=== PATIENT | male | born 1945 | race Caucasian/White ===

== ENCOUNTER 2022-08-28 12:00 | Emergency (ER) | payer MEDICARE ==
[2022-08-28] MEDS ORDERED: Aspirin Chewable 81 MG TAB ONE (12:24)
[2022-08-28 12:29] LABS: #Basophils 0.1 thou/uL (0.0-0.2); #Eosinphils 0.4 thou/uL (0.0-0.7); #Monocytes 1.1 thou/uL (0.11-0.59); #Neutrophils 9.2 thou/uL (1.40-6.50); %Basophils 0.7 % (0.0-1.0); %Eosinophils 3.4 % (0.0-10.0); %Lymphocytes 15.3 % (21.0-51.0); %Monocytes 8.4 % (0.0-10.0); %Neutrophils 72.2 % (42.0-75.0); Hemoglobin 12.1 g/dL (14.0-18.0); Mean Corpuscular HGB CONC 32.1 g/dL (32.0-36.0); Mean Corpuscular Hemoglobin 32.1 pg (27.0-31.0); Platelet Count 280 10x3/uL (130-400); RBC Distribution Width 13.5 % (11.5-14.5); Red Blood Cell (RBC) Count 3.76 mill/uL (4.70-6.10); White Blood Cell (WBC) Count 12.7 10x3/uL (4.8-10.8)
[2022-08-28 12:44] LABS: Base Excess-Venous 3.5 mmol/L (-2.0 to 3.0); CO2 Tension (PvCO2) 57.8 mmHg (42.0-51.0); Calcium, Ionized 1.17 mmol/L (1.15-1.33); Chloride 101 mmol/L (98-107); Hemoglobin - Calc 14.2 g/dL (14.0-18.0); Potassium 4.4 mmol/L (3.5-5.1); Sodium 138 mmol/L (138-145); T. Carbon Dioxide 32.7 mmol/L (22.0-28.0); vO2 Saturation-calc 87.7 % (60.0-85.0)
[2022-08-28 12:47] LABS: ALT (SGPT) 26 U/L (8-55); AST (SGOT) 20 U/L (5-34); Albumin 4.4 g/dL (3.4-4.8); Alkaline Phosphatase 77 U/L (40-110); Anion Gap 14 mmol/L (10-20); BUN (Urea Nitrogen) 25 mg/dL (8.4-25.7); Bilirubin, Total 0.3 mg/dL (0.2-1.2); Calc. Creatinine Clearance 0 mL/min (70-130); Calcium 9.4 mg/dL (7.8-10.44); Carbon Dioxide 29 mmol/L (23-31); Chloride 100 mmol/L (98-107); Estimated GFR 72; Globulin 2.9 g/dL (2.4-3.5); Glucose 98 mg/dL (83-110); Potassium 4.6 mmol/L (3.5-5.1); Protein, Total 7.3 g/dL (5.8-8.1); Sodium 138 mmol/L (136-145)
== END 2022-08-28 15:55 | disposition short-term general hospital (02) ==
LOC: BURERS 12:00
DX: I71.21 Aneurysm of the ascending aorta, without rupture (principal); I10 Essential (primary) hypertension; Z87.891 Personal history of nicotine dependence
CPT/HCPCS: 36415; 71045; 71275; 80053; 82330; 82435; 82803; 84132; 84295; 84484; 85025; 85379; 93005; 94760

== ENCOUNTER 2023-06-17 02:32 | Emergency (ER) | payer MEDICARE ==
[2023-06-17] MEDS ORDERED: Ondansetron PF 4 MG/2 ML Vial ONE (03:08)
[2023-06-17] MEDS ORDERED: Prochlorperazine 10 MG/2 ML VIAL ONE (03:18)
[2023-06-17 03:24] LABS: Bilirubin Negative (Negative); Blood, Urine Large (Negative); Clarity Turbid (Clear); Glucose, Urine (Dipstick) Negative (Negative); Ketone, Urine Negative (Negative); Leukocyte Large (Negative); Nitrite Negative (Negative); Protein, Urine (Dipstick) 100 mg/dL (Neg-Trace)
[2023-06-17 03:25] LABS: #Basophils 0.1 thou/uL (0.0-0.2); #Eosinphils 0.1 thou/uL (0.0-0.7); #Lymphocytes 0.8 thou/uL (1.20-3.40); #Monocytes 0.6 thou/uL (0.11-0.59); #Neutrophils 9.9 thou/uL (1.40-6.50); %Basophils 0.7 % (0.0-1.0); %Eosinophils 0.6 % (0.0-10.0); %Monocytes 5.2 % (0.0-10.0); %Neutrophils 86.6 % (42.0-75.0); Mean Corpuscular HGB CONC 34.3 g/dL (32.0-36.0); Mean Corpuscular Hemoglobin 31.7 pg (27.0-31.0); Mean Corpuscular Volume 92.6 fl (78.0-98.0); Mean Platelet Volume 7.2 fL (7.4-10.4); Platelet Count 276 10x3/uL (130-400); RBC Distribution Width 12.5 % (11.5-14.5); Red Blood Cell (RBC) Count 4.11 mill/uL (4.70-6.10); White Blood Cell (WBC) Count 11.4 10x3/uL (4.8-10.8)
[2023-06-17 03:31] LABS: Bacteria/HPF 2+ HPF (None Seen); CAUTI Indications for Culture Pelvic or flank pain; Squamous Epithelial 0-3 HPF (0-3); WBC/HPF Greater Than 50 HPF (0-3)
[2023-06-17 03:32] LABS: Anion Gap 18 mmol/L (10-20); BUN (Urea Nitrogen) 14 mg/dL (8.4-25.7); Calc. Creatinine Clearance 0 mL/min (70-130); Carbon Dioxide 30 mmol/L (23-31); Chloride 95 mmol/L (98-107); Potassium 3.5 mmol/L (3.5-5.1); Sodium 139 mmol/L (136-145)
[2023-06-17 03:33] LABS: ALT (SGPT) 16 U/L (8-55); AST (SGOT) 21 U/L (5-34); Albumin 4.1 g/dL (3.4-4.8); Alkaline Phosphatase 65 U/L (40-110); Bilirubin, Total 0.5 mg/dL (0.2-1.2); Calcium 9.7 mg/dL (7.8-10.44); Estimated GFR 77; Globulin 3.3 g/dL (2.4-3.5); Glucose 157 mg/dL (83-110); Lipase 18 U/L (8-78); Protein, Total 7.4 g/dL (5.8-8.1)
[2023-06-17 03:34] LABS: Urine Culture Reflex Yes Yes
[2023-06-17] MEDS ORDERED: cefTRIAXone (ROCEPHIN) 1 GM VIAL ONE (05:00)
[2023-06-17] MEDS ORDERED: Morphine 4 MG/ML VIAL ONE (05:37)
[2023-06-17 05:47] LABS: Lactic Acid 2.5 mmol/L (0.5-2.2)
[2023-06-17] MEDS ORDERED: Iopamidol 370 76% 100 ML VIAL ONE (14:53)
== END 2023-06-17 06:19 | disposition short-term general hospital (02) ==
LOC: BURERS 02:32
DX: K56.609 Unspecified intestinal obstruction, unspecified as to partial versus complete obstruction (principal); A41.9 Sepsis, unspecified organism; N39.0 Urinary tract infection, site not specified; I10 Essential (primary) hypertension; Z87.891 Personal history of nicotine dependence; Z79.899 Other long term (current) drug therapy
CPT/HCPCS: 36415; 74018; 74177; 80053; 81001; 83605; 83690; 85025; 87040; 87077; 87086; 87186; 93005; 96361; 96374; 96375; J0696; J0780; J2270; J2405; Q9967

== ENCOUNTER 2023-08-12 18:08 | Emergency (ER) | payer MEDICARE, OTHER ==
[2023-08-12] MEDS ORDERED: Boostrix 0.5 ML (Tdap) VIAL (>/=7 yrs of age) ONE (18:30)
== END 2023-08-12 19:55 | disposition home or self-care (01) ==
LOC: BURERS 18:08
DX: S80.211A Abrasion, right knee, initial encounter (principal); S50.312A Abrasion of left elbow, initial encounter; S50.11XA Contusion of right forearm, initial encounter; S80.212A Abrasion, left knee, initial encounter; S60.221A Contusion of right hand, initial encounter; I10 Essential (primary) hypertension; Z87.891 Personal history of nicotine dependence; W18.30XA Fall on same level, unspecified, initial encounter
CPT/HCPCS: 90471; 90715

== ENCOUNTER 2023-09-19 14:43 | Emergency (ER) | payer MEDICARE ==
[2023-09-19 15:22] LABS: Bilirubin Negative (Negative); Blood, Urine Large (Negative); Glucose, Urine (Dipstick) Negative (Negative); Ketone, Urine Negative (Negative); Leukocyte Small (Negative); Nitrite Negative (Negative); Protein, Urine (Dipstick) 100 mg/dL (Neg-Trace); Urobilinogen 0.2 mg/dL (Less than 2)
[2023-09-19 15:31] LABS: Clarity Cloudy (Clear); RBC/HPF 21-50 HPF (0-3)
[2023-09-19 15:32] LABS: Bacteria/HPF 2+ HPF (None Seen); CAUTI Indications for Culture Dysuria,urgency,freq; Squamous Epithelial 0-3 HPF (0-3)
[2023-09-19 15:33] LABS: Urine Culture Reflex Yes Yes
== END 2023-09-19 15:19 | disposition home or self-care (01) ==
LOC: BURERS 14:43
DX: R33.9 Retention of urine, unspecified (principal); I10 Essential (primary) hypertension; Z87.891 Personal history of nicotine dependence; Z79.899 Other long term (current) drug therapy; Z79.82 Long term (current) use of aspirin
CPT/HCPCS: 51702; 81001; 87077; 87086; 87186; 99283

== ENCOUNTER 2023-11-07 17:58 | Inpatient (IN) | payer MEDICARE ==
[2023-11-08] MEDS ORDERED: HYDROcodone/Acetaminophen 5/325 mg Tablet PO PRN (17:57)
[2023-11-08] MEDS ORDERED: Bisacodyl 10 MG SUPP PR PRN (17:57)
[2023-11-08] MEDS: Acetaminophen 500 MG TAB PO SCH (21:17)
[2023-11-08] MEDS: Dutasteride 0.5 MG CAP PO SCH (21:47)
[2023-11-08] MEDS: Atorvastatin Calcium 10 MG TAB PO SCH (21:47)
[2023-11-08] MEDS: Amlodipine 5 MG TAB PO SCH (21:47)
[2023-11-08] MEDS: QUEtiapine 25 MG TAB PO SCH (21:47)
[2023-11-08] MEDS: Senokot S 8.6-50 MG TAB PO SCH (21:48)
[2023-11-09 04:59] LABS: #Basophils 0.1 thou/uL (0.0-0.2); #Eosinphils 0.7 thou/uL (0.0-0.7); #Lymphocytes 2.1 thou/uL (1.20-3.40); #Monocytes 0.8 thou/uL (0.11-0.59); %Basophils 1.4 % (0.0-1.0); %Eosinophils 9.1 % (0.0-10.0); %Lymphocytes 26.7 % (21.0-51.0); %Monocytes 10.4 % (0.0-10.0); %Neutrophils 52.4 % (42.0-75.0); Hematocrit 32.9 % (42.0-52.0); Hemoglobin 10.8 g/dL (14.0-18.0); Mean Corpuscular HGB CONC 32.9 g/dL (32.0-36.0); Mean Corpuscular Hemoglobin 30.2 pg (27.0-31.0); Mean Corpuscular Volume 91.8 fl (78.0-98.0); Mean Platelet Volume 4.8 fL (7.4-10.4); Platelet Count 416 10x3/uL (130-400); RBC Distribution Width 12.1 % (11.5-14.5); Red Blood Cell (RBC) Count 3.58 mill/uL (4.70-6.10); White Blood Cell (WBC) Count 7.7 10x3/uL (4.8-10.8)
[2023-11-09 05:54] LABS: Anion Gap 13 mmol/L (10-20); BUN (Urea Nitrogen) 12 mg/dL (8.4-25.7); Calc. Creatinine Clearance 99 mL/min (70-130); Calcium 8.8 mg/dL (7.8-10.44); Carbon Dioxide 29 mmol/L (23-31); Chloride 98 mmol/L (98-107); Estimated GFR 93; Glucose 92 mg/dL (83-110); Potassium 4.2 mmol/L (3.5-5.1); Sodium 136 mmol/L (136-145)
[2023-11-09] MEDS ORDERED: Famotidine 20 MG TAB PO SCH (09:00)
[2023-11-09] MEDS ORDERED: Lidocaine 4% Patch TD SCH (09:00)
[2023-11-09] MEDS: METHYLNALTREXONE BROMIDE 150 MG PO SCH (09:00)
[2023-11-09] MEDS: Aspirin 81 mg Enteric Coated Tablet PO SCH (09:23)
[2023-11-09] MEDS: Pantoprazole DR 40 MG TAB PO SCH (09:24)
[2023-11-09] MEDS: Chlorthalidone 25 MG TAB PO SCH (09:25)
[2023-11-09] MEDS: Cholecalciferol 1,000 UNITS (25 MCG) TAB PO SCH (09:26)
[2023-11-09] MEDS: Lidocaine 4% Patch TD SCH (09:27)
[2023-11-09] MEDS: Enoxaparin 40 MG (0.4 mL) SYRINGE SC SCH (09:27)
[2023-11-09] MEDS: Polyethylene Glycol 3350 17 GM Packet PO SCH (09:29)
[2023-11-09] MEDS: Diclofenac 1% 100 GM Topical GEL TP SCH (09:33)
[2023-11-09 12:43] VITALS: BMI 25.7
[2023-11-09] MEDS: Vancomycin HCl 125 MG Capsule PO SCH (12:49)
[2023-11-09] MEDS: Plecanatide [Trulance] 3 MG Tablet PO SCH (17:20)
[2023-11-09] MEDS: Lorazepam 1 MG TAB PO PRN (20:58)
[2023-11-09] MEDS: Transdermal Patch Removal TOP SCH (22:00)
[2023-11-10] MEDS: Acetaminophen 500 MG TAB PO PRN (07:48)
[2023-11-10] MEDS: Buprenorphine 2mg/Naloxone 0.5mg per 1 FILM SL SCH (16:50)
[2023-11-10] MEDS: Melatonin 3 MG TAB PO PRN (20:19)
[2023-11-11] MEDS: MULTIVITAMIN PO SCH (00:01)
[2023-11-11] MEDS: Ondansetron ODT 4 MG TAB PO PRN (00:15)
[2023-11-11] MEDS: Hydrocodone-Acetamin 15 ML UDCUP PO SCH (16:51)
[2023-11-11] MEDS: HYDROcodone/Acetaminophen 10/325 mg Tablet PO PRN (17:20)
[2023-11-12 05:29] VITALS: BMI 23.3
[2023-11-12] MEDS: Lorazepam 1 MG TAB PO PRN (15:57)
[2023-11-14 05:17] VITALS: BP 141/74; TEMP 98.5
== END 2023-11-14 09:05 | disposition home or self-care (01) | DRG 948 ==
LOC: BURMED 11-08 14:40
PROVIDERS: ADMIT Family Medicine; ATTEND Family Medicine
DX: R53.81 Other malaise (principal); E87.1 Hypo-osmolality and hyponatremia; A04.72 Enterocolitis due to Clostridium difficile, not specified as recurrent; I10 Essential (primary) hypertension; E78.5 Hyperlipidemia, unspecified; G89.29 Other chronic pain; M54.9 Dorsalgia, unspecified; I25.10 Atherosclerotic heart disease of native coronary artery without angina pectoris; F32.A Depression, unspecified; F41.9 Anxiety disorder, unspecified; N40.1 Benign prostatic hyperplasia with lower urinary tract symptoms; R33.8 Other retention of urine; Z95.1 Presence of aortocoronary bypass graft; Z79.82 Long term (current) use of aspirin; Z79.899 Other long term (current) drug therapy; Z88.1 Allergy status to other antibiotic agents; Z88.8 Allergy status to other drugs, medicaments and biological substances
CPT/HCPCS: 36415; 80048; 85025; J0572; J1650; Q0162